=== PATIENT | female | born 1995 | race Caucasian/White ===

== ENCOUNTER 2016-11-26 20:18 | Emergency (ER) | payer MEDICAID, OTHER ==
[2016-11-26 20:27] VITALS: BP 123/77; PULSE 75; RESP 18; TEMP 97.9
[2016-11-26] MEDS ORDERED: DIPH,PERTUS(ACELL)TETVAC-LF 0.5 ML VIAL IM ONE (20:46)
--- NOTE | 2016-11-26 20:50 | ED ---
General Adult HPI - General Chief complaint: Wound/Laceration Stated complaint: finger lac-[facility] Time Seen by Provider: 11/26/16 20:25 Source: patient, RN notes reviewed Mode of arrival: ambulatory Limitations: no limitations - History of Present Illness Initial comments: 21-year-old female presents emergency 5 chief complaint of left middle finger laceration. 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 Patient denies any pain does not recall her last tetanus. Patient states that she is able to move the finger. They were concerned due to the bleeding so they thought they should be seen.Patient denies any recent fever, chills, shortness of breath, chest pain, back pain, abdominal pain, nausea vomiting, numbness or tingling, dysuria or hematuria, constipation or diarrhea, headaches or visual changes, or any other current symptoms. - Related Data Home Medications Medication Instructions Recorded Confirmed Dextroamphetamine/Amphetamine 1 tab PO DAILY 11/26/16 11/26/16 [Adderall] Allergies Allergy/AdvReac Type Severity Reaction Status Date / Time No Known Allergies Allergy Verified 11/26/16 20:25 Review of Systems ROS Statement: Those systems with pertinent positive or pertinent negative responses have been documented in the HPI. ROS Other: All systems not noted in ROS Statement are negative. Past Medical History Past Medical History: No Reported History History of Any Multi-Drug Resistant Organisms: None Reported Past Surgical History: No Surgical Hx Reported Past Psychological History: ADD/ADHD Smoking Status: Never smoker Past Alcohol Use History: None Reported Past Drug Use History: None Reported General Exam - General Exam Comments Initial Comments: General: The patient is awake and alert, in no distress, and does not appear acutely ill. Neck: The neck is supple, there is no tenderness. Cardiovascular: There is a regular rate and rhythm. No murmur, rub or gallop is appreciated. Respiratory: Lungs are clear to auscultation, respirations are non-labored, breath sounds are equal. No wheezes, stridor, rales, or rhonchi. Musculoskeletal: Sensation intact with 2+ pulses throughout the left upper x- ray. Range of motion of the left middle finger. Patient does appear to have a 1 cm laceration over the left PIP joint. Full range of motion.n 5/5 muscle strength testing. Less than 2 capillary refill. Neurological: CN II-XII intact, There are no obvious motor or sensory deficits. Coordination appears grossly intact. Speech is normal. Skin: Skin is warm and dry and no rashes or lesions are noted. Psychiatric: Normal mood and affect. Limitations: no limitations Course Vital Signs 11/26/16 20:25 Temperature 97.9 F Pulse Rate 75 Respiratory 18 Rate Blood Pressure 123/77 O2 Sat by Pulse 98 Oximetry Procedures - Procedures Initial comment: Consent was obtained. The skin was anesthetized with 1% lidocaine. The laceration was then cleansed with Betadine and irrigated with normal saline. The wound was inspected, and there was no evidence of injury to deep structures. No foreign body was noted in the wound. A total of 3 skin sutures were placed utilizing 5-0 nylon to a monitor and laceration to left middle finger Medical Decision Making - Medical Decision Making 18-year-old female presents for left middle finger laceration. This time patient does not have an x-ray done. This time we did suture the area. Did discuss benefits x-rays did discuss this patient states she understood but she does not have this. We will update her tetanus. We discussed return parameters and follow-up and all patient's questions. She stated that she understood and she is given plan. All questions have been answered. She will be discharged home. Disposition Clinical Impression: Laceration of left middle finger Disposition: HOME SELF-CARE Condition: Stable Instructions: Laceration (ED), Care For Your Stitches (ED) Additional Instructions: Please use medication as discussed. Please follow up with family doctor if symptoms have not improved over the next two days. Please return to the emergency room if your symptoms increase or worsen or for any other concerns. Please return to the emergency room in 8-10 days to have sutures removed. Please leave wound covered for the first 24-48 hours and then leave open to air after that time. Please use clean soap and water to clean the suture area to prevent scabbing over the top of your sutures. Please watch for any signs of infection which may include but not limited to increased pain, swelling, redness , fever or chills. Please return to the emergency room if any signs of infection do occur. Please return to the emergency room for any other concerns or complications. Referrals: Jaiden Garcia MD [Primary Care Provider] - 1-2 days Time of Disposition: 20:50
== END 2016-11-26 21:12 | disposition home or self-care (01) ==
LOC: EC 20:18
DX: S61.213A Laceration without foreign body of left middle finger without damage to nail, initial encounter (principal); F90.9 Attention-deficit hyperactivity disorder, unspecified type; Z23 Encounter for immunization; Z79.899 Other long term (current) drug therapy; W45.8XXA Other foreign body or object entering through skin, initial encounter; Y99.0 Civilian activity done for income or pay
CPT/HCPCS: 12001; 90471; 90715; 99283